=== PATIENT | female | born 1935 | race Caucasian/White ===

== ENCOUNTER 2020-03-22 17:30 | Emergency (ER) | payer MEDICARE, OTHER ==
[~2020-03-22] VITALS: Ht 149.9 cm; Wt 81.2 kg
[2020-03-22] MEDS ORDERED: FUROSEMIDE40 MG PO (17:49)
[2020-03-22] MEDS ORDERED: LISINOPRIL-HCT1 EACH PO (17:49)
[2020-03-22] MEDS ORDERED: POTASSIUM CHLO10 ME1 PO (17:50)
[2020-03-22] MEDS ORDERED: VASCEPA1 GM PO (17:51)
--- NOTE | 2020-03-22 19:46 | EKG ---
[facility] [address] [facility] [place], [place] [address] Signed Normal sinus rhythm Normal ECG No previous ECGs available Confirmed by STACEY PARKER MD [id number] on 03/22/2020 7:45:49 PM Electronically Signed By: STACEY PARKER MD 03/22/20 194 PATIENT NAME: JOSE CASTANEDA Electrocardiogram DATE OF : 33 PHYSICIAN: STACEY PARKER MD REPORT #: [id number] REPORT IS CONFIDENTIAL AND NOT TO BE RELEASED WITHOUT AUTHORIZATION
== END 2020-03-22 19:35 | disposition home or self-care (01) ==
LOC: ED 17:30
DX: R00.0 Tachycardia, unspecified (principal); E86.0 Dehydration; Z79.899 Other long term (current) drug therapy
CPT/HCPCS: 0297T; 0298T; 71045; 80053; 81001; 83735; 84484; 85025; 93005; 93010; 99285-25